=== PATIENT | female | born 1955 | race Caucasian/White ===

== ENCOUNTER → 2020-07-17 12:28 | Outpatient (CLI) | payer BC, SELFPAY ==
--- NOTE | ~2020-07-17 | MM_ITS ---
EXAMINATION: MM screening sophy BI w marino HISTORY: Screening mammogram TECHNIQUE: Craniocaudal and mediolateral oblique 3-D tomosynthesis images were obtained and synthetic 2-D images were generated. CAD analysis was submitted and interpreted. COMPARISON: 05/11/2019, 04/19/2018, 04/16/2017 bilateral digital screening mammogram examinations. BREAST PARENCHYMAL COMPOSITION: The breasts are heterogeneously dense, which may obscure small masses . FINDINGS: There are scattered benign calcifications, more numerous on the left. There is no evidence of suspicious mass, calcification, or architectural distortion to suggest malignancy in either breast . There has been no suspicious interval change. IMPRESSION: 1. No mammographic evidence of malignancy. 2. Recommend routine screening mammography in one year. BI-RADS Category 2: Benign finding(s). Reviewed, dictated and finalized at location A.
== END ==
PROVIDERS: PCP Family Medicine; Visit Provider Obstetrics & Gynecology Gynecology
DX: Z12.31 Encounter for screening mammogram for malignant neoplasm of breast (principal)
CPT/HCPCS: 77063; 77067

== ENCOUNTER → 2020-07-20 11:14 | Outpatient (CLI) | payer BC, SELFPAY ==
--- NOTE | ~2020-07-20 | DEXA_ITS ---
Bone Density Report Name: Sarah Salguero Age: 65 Sex: Female Ethnicity: White Date of : 1955 Indication: osteopenia; monitoring treatment; postmenopausal Referring Provider: ALEXEY SADLER Study: Bone densitometry was performed. Exam Date: July 20, 2020 Accession number: [id number] Bone Density: Region BMD T-score Z-score Classification AP Spine (L1-L4) 0.875 -1.6 0.2 Osteopenia Femoral Neck (Left) 0.682 -1.5 0.0 Osteopenia Total Hip (Left) 0.848 -0.8 0.4 Normal Femoral Neck (Right) 0.719 -1.2 0.3 Osteopenia Total Hip (Right) 0.809 -1.1 0.1 Osteopenia Total Hip Mean 0.829 -1.0 0.3 Normal World Health Organization criteria for BMD impression classify patients as: Normal (T-score at or above -1.0), Osteopenia (T-score between -1.0 and -2.5), or Osteoporosis (T-score at or below -2.5). 10-year Fracture Risk: FRAX not reported because: Treated for osteoporosis Previous Exams: Region Exam Age BMD T-score BMD Change BMD Change Date g/cm2 vs Baseline vs Previous AP Spine(L1-L4) 07/20/2020 65 0.875 -1.6 0.035* 0.051* 04/19/2018 63 0.824 -2.0 -0.016 -0.017 03/11/2016 61 0.841 -1.9 0.001 0.040* 03/29/2013 58 0.800 -2.2 -0.039* -0.039* 10/03/2009 54 0.839 -1.9 Total Hip(Left) 07/20/2020 65 0.848 -0.8 0.021 0.028* 04/19/2018 63 0.819 -1.0 -0.007 -0.007 03/11/2016 61 0.827 -0.9 0.000 0.025 03/29/2013 58 0.802 -1.1 -0.025 -0.025 10/03/2009 54 0.827 -0.9 Total Hip(Right) 07/20/2020 65 0.809 -1.1 0.002 0.024 04/19/2018 63 0.785 -1.3 -0.022 -0.043* 03/11/2016 61 0.828 -0.9 0.020 0.021 03/29/2013 58 0.807 -1.1 0.000 0.000 10/03/2009 54 0.808 -1.1 *Denotes significance at 95% confidence level, LSC for AP Spine = 0.022 g/cm2, LSC for Total Hip = 0.027 g/cm2 Clinical Information Provided by Patient: Is being treated for osteoporosis Has used the following medications: Fosamax (i.e. alendronate), Vitamin D Patient maximum height was 61.1 Menopause Age: 53 Drinks caffeinated beverages Onset of menses at age 14 Number of children 3 Impression: The patient has low bone mass, based on the Total Spine T-score. No significant bone loss was observed. Disc
== END ==
PROVIDERS: Visit Provider Obstetrics & Gynecology Gynecology
DX: M85.88 Other specified disorders of bone density and structure, other site (principal); Z78.0 Asymptomatic menopausal state; M85.852 Other specified disorders of bone density and structure, left thigh; M85.851 Other specified disorders of bone density and structure, right thigh
CPT/HCPCS: 77080

== ENCOUNTER 2021-06-06 01:46 | Day surgery (SDC) | payer BC, SELFPAY ==
[2021-05-29 09:02] VITALS: BMI 23.3
--- NOTE | 2021-06-05 13:06 | WPDANESEPPF ---
Anes - Initial Pre Proc Eval Procedure: Operation Date: 06/06/21 08:00 Proposed Procedures p Screening Colonoscopy - Cl Thurman MD Date/Time: 06/05/21 13:06 Surgeon: Cl Thurman MD Pre Op Diagnosis: family hx of colon ca Patient Data Age: 66 Gender: F Height: 1.55 m Weight: 56 kg Allergies Allergy/AdvReac Type Severity Reaction Status Date / Time No Known Allergies Allergy Verified 06/06/21 06:52 Home Medications Medication Instructions Recorded Confirmed Type alprazolam 0.25 mg tablet 0.25 mg PO DAILY PRN 05/09/20 06/06/21 History ergocalciferol (vitamin D2) 1,250 1,250 mcg PO WEEKLY 05/09/20 05/29/21 History mcg (50,000 unit) capsule sertraline 50 mg tablet 50 mg PO DAILY #90 tablet 01/25/21 05/29/21 Rx atorvastatin 10 mg tablet 10 mg PO DAILY #90 tablet 04/11/21 05/29/21 Rx Patient hx anesthesia problems: none Family hx anesthesia problems: none [facility] Past Medical History Medical History (Updated 06/06/21 @ 07:44 by Cl Thurman MD) Generalized anxiety disorder Hyperlipidemia Social History Social History Smoking status: Never smoker Living arrangements: with family Spiritual care concerns: No Anes - Eval Final PreProcedure Day of Procedure 06/05/21 13:06 Patient weight: normal Heart: regular rate and rhythm Lungs: clear to auscultation and normal air movement Airway: Mallampati scale class II Neurological: alert and oriented Last oral intake: >/= 8 hours ASA classification: II Emergent: no Anesthetic plan: proceed Anesthesia type and monitoring: general GIVS and standard monitoring Informed Consent: The patient's anesthetic plan and its attendant risks and benefits were discussed with the patient/family/POA. Questions were solicited and answers provided to the satisfaction of the patient/family/POA.
[2021-06-06 06:53] VITALS: BP 125/69; PULSE 90; RESP 18; TEMP 36.4; O2SAT 97
[2021-06-06] MEDS: LACTATED RINGERS 1,000 ML 150 ML IV CONT (07:05)
--- NOTE | 2021-06-06 07:42 | WPDGICN ---
Assessment and Plan Assessment and plan (1) Family hx of colon cancer: Code(s): Z80.0 - Family history of malignant neoplasm of digestive organs Status: Acute Assessment and Plan: Patient's brother has had colon cancer. Other family members have other different cancers. Suggest follow-up colonoscopy at least at 5 year intervals. GI Consult Note Consult date/time: 06/06/21 07:42 HPI: Sarah Salguero is a 66 year old female Presents for surveillance colonoscopy. Patient's family history is significant that her brother had colon cancer. His to children have had colon polyps. Patient reports that her weight appetite bowel movements are normal. She denies abdominal pain. She has had no bleeding. Other family members have had prostate and ovarian cancer. Patient presents today for screening colonoscopy. her last exam was in 2012. Review of Systems Review of Systems: All systems reviewed & are unremarkable except as noted in HPI and below PMFSH Past Medical History Medical History (Updated 06/06/21 @ 07:44 by Cl Thurman MD) Generalized anxiety disorder Hyperlipidemia Social History Social History Smoking status: Never smoker Living arrangements: with family Spiritual care concerns: No Meds Home Medications and Allergies Home Medications Medication Instructions Recorded Confirmed Type alprazolam 0.25 mg tablet 0.25 mg PO DAILY PRN 05/09/20 06/06/21 History ergocalciferol (vitamin D2) 1,250 1,250 mcg PO WEEKLY 05/09/20 05/29/21 History mcg (50,000 unit) capsule sertraline 50 mg tablet 50 mg PO DAILY #90 tablet 01/25/21 05/29/21 Rx atorvastatin 10 mg tablet 10 mg PO DAILY #90 tablet 04/11/21 05/29/21 Rx Allergies Allergy/AdvReac Type Severity Reaction Status Date / Time No Known Allergies Allergy Verified 06/06/21 06:52 Vital Signs Vital Signs - 24 hr 06/06/21 06:53 Temperature 97.6 F Pulse Rate 90 Respiratory Rate 18 Blood Pressure 125/69 Pulse Oximetry 97 Exam Narrative: Physical exam reveals patient to be alert. Vital signs are stable. HEENT exam is unremarkable. Patient is anicteric. Lungs are clear to auscultation and percussion. Heart is without murmur or extra sounds. Abdominal exam bowel sounds are present soft nontender with no organomegaly. Digital external rectal exam is normal.
[2021-06-06 08:45] VITALS: BP 81/46; PULSE 64; RESP 23; O2SAT 99
[2021-06-06 08:55] VITALS: BP 103/56; PULSE 60; RESP 14; O2SAT 98
[2021-06-06 09:05] VITALS: BP 118/75; PULSE 62; RESP 15; O2SAT 100
== END 2021-06-06 09:20 | disposition home or self-care (01) ==
PROVIDERS: PCP Family Medicine; Visit Provider Internal Medicine Gastroenterology
PROC: 0DJD8ZZ Inspection of Lower Intestinal Tract, Via Natural or Artificial Opening Endoscopic (ICD-10-PCS; CPT 45378; principal; 2021-06-06 08:00)
DX: Z12.11 Encounter for screening for malignant neoplasm of colon (principal); Z80.0 Family history of malignant neoplasm of digestive organs; K64.8 Other hemorrhoids; E78.5 Hyperlipidemia, unspecified; F41.1 Generalized anxiety disorder
CPT/HCPCS: 45378; J2704; J7120

== ENCOUNTER → 2021-08-20 11:18 | Outpatient (CLI) | payer BC, SELFPAY ==
--- NOTE | ~2021-08-20 | MM_ITS ---
EXAMINATION: MM screening sophy BI w marino HISTORY: Screening mammogram TECHNIQUE: Craniocaudal and mediolateral oblique 3-D tomosynthesis images were obtained and synthetic 2-D images were generated. CAD analysis was submitted and interpreted. COMPARISON: 07/17/2020, 05/11/2019, 04/19/2018 BREAST PARENCHYMAL COMPOSITION: The breasts are heterogeneously dense, which may obscure small masses . FINDINGS: Scattered benign-appearing calcifications are present. There is no evidence of suspicious m ass, calcification, or architectural distortion to suggest malignancy in either breast. There has bee n no suspicious interval change. IMPRESSION: 1. No mammographic evidence of malignancy. 2. Recommend routine screening mammography in one year. BI-RADS Category 2: Benign finding(s). Reviewed, dictated and finalized at location A. 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
== END ==
PROVIDERS: PCP Family Medicine; Visit Provider Obstetrics & Gynecology Gynecology
DX: Z12.31 Encounter for screening mammogram for malignant neoplasm of breast (principal)
CPT/HCPCS: 77063; 77067

== ENCOUNTER → 2022-12-31 12:00 | Outpatient (CLI) | payer MEDICARE, SELFPAY ==
--- NOTE | ~2022-12-31 | MM_ITS ---
EXAMINATION: MM screening sophy BI w marino HISTORY: Screening mammogram TECHNIQUE: Craniocaudal and mediolateral oblique 3-D tomosynthesis images were obtained and synthetic 2-D images were generated. CAD analysis was submitted and interpreted. COMPARISON: 08/20/2021, 07/17/2020, 05/11/2019 bilateral screening mammogram examinations BREAST PARENCHYMAL COMPOSITION: The breasts are heterogeneously dense, which may obscure small masses . FINDINGS: Scattered benign calcifications. There is no evidence of suspicious mass, calcification, or architectural distortion to suggest malignancy in either breast. There has been no suspicious interv al change. IMPRESSION: 1. No mammographic evidence of malignancy. 2. Recommend routine screening mammography in one year. BI-RADS Category 2: Benign finding(s). Reviewed, dictated and finalized at location A.
--- NOTE | ~2022-12-31 | DEXA_ITS ---
Bone Density Report Name: PRATIK MOSCOSO Age: 67 Sex: Female Ethnicity: White Date of : 1955 Indication: osteopenia; postmenopausal; monitoring treatment; Referring Provider: ALEXEY SADLER Study: Bone densitometry was performed. Exam Date: December 31, 2022 Accession number: [id number] Bone Density: Region BMD T-score Z-score Classification AP Spine (L1-L4) 0.894 -1.4 0.5 Osteopenia Femoral Neck (Left) 0.673 -1.6 0.0 Osteopenia Total Hip (Left) 0.825 -1.0 0.4 Normal Femoral Neck (Right) 0.673 -1.6 0.0 Osteopenia Total Hip (Right) 0.827 -0.9 0.4 Normal Total Hip Mean 0.826 -1.0 0.4 Normal World Health Organization criteria for BMD impression classify patients as: Normal (T-score at or above -1.0), Osteopenia (T-score between -1.0 and -2.5), or Osteoporosis (T-score at or below -2.5). 10-year Fracture Risk: FRAX not reported because: Treated for osteoporosis Previous Exams: Region Exam Age BMD T-score BMD Change BMD Change Date g/cm2 vs Baseline vs Previous AP Spine(L1-L4) 12/31/2022 67 0.894 -1.4 0.055* 0.020 07/20/2020 65 0.875 -1.6 0.035* 0.051* 04/19/2018 63 0.824 -2.0 -0.016 -0.017 03/11/2016 61 0.841 -1.9 0.001 0.040* 03/29/2013 58 0.800 -2.2 -0.039* -0.039* 10/03/2009 54 0.839 -1.9 Total Hip(Left) 12/31/2022 67 0.825 -1.0 -0.002 -0.023 07/20/2020 65 0.848 -0.8 0.021 0.028* 04/19/2018 63 0.819 -1.0 -0.007 -0.007 03/11/2016 61 0.827 -0.9 0.000 0.025 03/29/2013 58 0.802 -1.1 -0.025 -0.025 10/03/2009 54 0.827 -0.9 Total Hip(Right) 12/31/2022 67 0.827 -0.9 0.019 0.018 07/20/2020 65 0.809 -1.1 0.002 0.024 04/19/2018 63 0.785 -1.3 -0.022 -0.043* 03/11/2016 61 0.828 -0.9 0.020 0.021 03/29/2013 58 0.807 -1.1 0.000 0.000 10/03/2009 54 0.808 -1.1 *Denotes significance at 95% confidence level, LSC for AP Spine = 0.022 g/cm2, LSC for Total Hip = 0.027 g/cm2 Clinical Information Provided by Patient: Is being treated for osteoporosis Has used the following medications: Vitamin D Patient maximum height was 61.1 Menopause Age: 53 Drinks caffeinated beverages Onset of menses at age 14 Number of children 3
== END ==
PROVIDERS: PCP Family Medicine; Visit Provider Obstetrics & Gynecology Gynecology
DX: Z12.31 Encounter for screening mammogram for malignant neoplasm of breast (principal); Z78.0 Asymptomatic menopausal state; M85.88 Other specified disorders of bone density and structure, other site; M85.852 Other specified disorders of bone density and structure, left thigh; M85.851 Other specified disorders of bone density and structure, right thigh
CPT/HCPCS: 77063; 77067; 77080

== ENCOUNTER 2024-01-20 14:38 | Outpatient (CLI) | payer MEDICARE, SELFPAY ==
--- NOTE | ~2024-01-20 | MM_ITS ---
EXAMINATION: MM screening sophy BI w marino HISTORY: Screening mammogram TECHNIQUE: Craniocaudal and mediolateral oblique 3-D tomosynthesis images were obtained and synthetic 2-D images were generated. CAD analysis was submitted and interpreted. COMPARISON: December 31, 2022, August 20, 2021 bilateral screening mammogram examinations BREAST PARENCHYMAL COMPOSITION: There are scattered areas of fibroglandular density. FINDINGS: Occasional benign calcifications. There is no evidence of suspicious mass, calcification, o r architectural distortion to suggest malignancy in either breast. There has been no suspicious inter bebeto change. IMPRESSION: 1. No mammographic evidence of malignancy. 2. Recommend routine screening mammography in one year. BI-RADS Category 2: Benign Reviewed, dictated and finalized at location A.
== END 2024-01-20 14:39 ==
LOC: MICIMG 14:39
PROVIDERS: PCP Family Medicine; Visit Provider Obstetrics & Gynecology Gynecology
DX: Z12.31 Encounter for screening mammogram for malignant neoplasm of breast (principal)
CPT/HCPCS: 77063; 77067

== ENCOUNTER 2025-04-26 09:36 | Outpatient (CLI) | payer MEDICARE, SELFPAY ==
--- NOTE | ~2025-04-26 | DEXA_ITS ---
Bone Density Report Name: PRATIK MOSCOSO Age: 70 Sex: Female Ethnicity: White Date of : 1955 Indication: osteopenia; monitoring treatment; Referring Provider: MATTHIEU DEL RIO Study: Bone densitometry was performed. Exam Date: April 26, 2025 Accession number: [id number] Bone Density: Region BMD T-score Z-score Classification AP Spine(L1-L4) 0.918 -1.2 0.9 Osteopenia Femoral Neck (Left) 0.701 -1.3 0.4 Osteopenia Total Hip (Left) 0.888 -0.4 1.0 Normal Femoral Neck (Right) 0.681 -1.5 0.2 Osteopenia Total Hip (Right) 0.833 -0.9 0.6 Normal Total Hip Mean 0.860 -0.7 0.8 Normal World Health Organization criteria for BMD impression classify patients as: Normal (T-score at or above -1.0), Osteopenia (T-score between -1.0 and -2.5), or Osteoporosis (T-score at or below -2.5). 10-year Fracture Risk: FRAX not reported because: Treated for osteoporosis Previous Exams: Region Exam Age BMD T-score BMD Change BMD Change Date g/cm2 vs Baseline vs Previous AP Spine (L1-L4) 04/26/2025 70 0.918 -1.2 0.024 (2.7%)# 0.024 (2.7%)# 12/31/2022 67 0.894 -1.4 Total Hip(Left) 04/26/2025 70 0.888 -0.4 0.063 (7.6%)# 0.063 (7.6%)# 12/31/2022 67 0.825 -1.0 Total Hip(Right) 04/26/2025 70 0.833 -0.9 0.006 (0.7%)# 0.006 (0.7%)# 12/31/2022 67 0.827 -0.9 *Denotes significance at 95% confidence level, LSC for AP Spine = 0.022 g/cm2, LSC for Total Hip = 0.027 g/cm2 # Denotes dissimilar scan types or analysis methods Clinical Information Provided by Patient: Is being treated for osteoporosis Has used the following medications: Vitamin D Patient maximum height was 61.0 Menopause Age: 53 Drinks caffeinated beverages Onset of menses at age 14 Number of children 3 Impression: The patient has low bone mass, based on the Right Femoral Neck T-score. No significant bone loss was observed. Discussion: PATIENT UNDER TREATMENT WITH NO SIGNIFICANT BMD LOSS SINCE LAST EXAM. In an untreated patient, BMD typically declines with age. A lack of decline or gain is usually a sign that treatment is efficacious and fracture risk is reduced. It is important to ask patients whether they are taking their medications and to encourage continued and appropriate compliance with their osteoporosis therapies to reduce fracture risk. It is also important to review their risk factors and encourage appropriate calcium and vitamin D intakes, exercise, fall prevention and other lifestyle measures. Follow-Up: Consider a repeat BMD and Vertebral Fracture Assessment (VFA) exam in 2 years or sooner if medically necessary, to reassess this patient's status. Reported by: ERICKA on 04/26/2025 10:19:00 AM. Reviewed, dictated and finalized at location A.
--- NOTE | ~2025-04-26 | MM_ITS ---
EXAMINATION: MM screening sophy BI w marino HISTORY: Screening TECHNIQUE: Craniocaudal and mediolateral oblique 3-D tomosynthesis images were obtained and synthetic 2-D images were generated. CAD analysis was submitted and interpreted. COMPARISON: Comparison to multiple prior studies sequentially, with oldest reviewed study dated 04/19. BREAST PARENCHYMAL COMPOSITION: Dense: The breasts are heterogeneously dense, which may obscure small masses FINDINGS: There is no evidence of suspicious mass, calcification, or architectural distortion to sugg est malignancy in either breast. There has been no suspicious interval change. IMPRESSION: 1. No mammographic evidence of malignancy. 2. Recommend routine screening mammography in one year. BI-RADS Category 1: Negative Reviewed, dictated and finalized at location B.
--- OUTSIDE RECORDS SUMMARY | 2025-04-26 09:59 | XMS_ITS | Clinical Summary ---
Author Organization [facility] Address [address] [place] [address] Care Team Providers Care Probation Agent Name Role Phone Unavailable Primary Care Provider Unavailabl e Source Comments [facility],non-owned Affiliates and Associated Physician Practices is amultiple site organization consisting of ambulatory clinics and hospital sitesin [place], [place], [place] and [place]. This disclosure is being madepursuant to the Care Everywhere program and may not contain all information available regarding this patient. Last updated 18.[facility] Encounters Date Type Department Care Team Description 04/25/2025 Lab Requisition [facility] - DermPath Lab [address] [place] [address] Valencia Dickson MD from Last 3 Months Social History Tobacco Use Types Packs/Day Years Used Date Smoking Tobacco: Never Assessed Comments Unknown Sex and Gender Information Value Date Recorded Sex Assigned at Not on file Legal Sex Female 8:55 AM CDT Gender Identity Not on file Sexual Orientation Not on file Plan of Treatment Health Maintenance Due Date Last Done Comments BONE DENSITY TESTING 1955 COLOGUARD (AGES 45-75) - COL ON CA SCREENING 1955 COLON MONITORING 1955 COLONOSCOPY - COLON CA SCREENING 1955 CT COLONOGRAPHY - COLON CA SCREENING 1955 Colorectal Cancer Screening 1955 FIT - COLON CA SCREENING 1955 FLEX SIG - COLON CA SCREENING 1955 LIPID TESTING 1955 MAMMOGRAM 1955 MEDICARE AWV 12 MONTHS 1955 HEPATITIS C SCREENING 01/14/1974 DTAP/TDAP/TD VACCINES (1 - Tdap) 01/18/1975 PNEUMOCOCCAL VACCINE 50+ (1 of 1 - PCV) 01/18/2006 ZOSTER VACCINE (1 of 2) 01/18/2006 COVID-19 VACCINE (2023-2 5 season) 2024 DEPRESSION SCREENING 09/28/2024 INFLUENZA VACCINE (#1) 2025 Respiratory Syncytial Virus (RSV) Vaccine Pt: or over 60 yrs (1 - 1-dose 75+ series) 01/18/2031 HEPATITIS B VACCINE Aged Out No longe r eligible based on patient's age to complete this topic HIB VACCINE Aged Out No longer eligi ble based on patient's age to complete this topic HPV VACCINE Aged Out No longer eligi ble based on patient's age to complete this topic MENINGOCOCCAL (Group B) VACC INE SHARED DECISION-MAKING Aged Out No longer eligibl e based on patient's age to complete this topic MENINGOCOCCAL GROUPS A/C/Y/W VACCINE Aged Out No longer eligible b ased on patient's age to complete this topic Insurance [facility] MEDICARE AARP
--- OUTSIDE RECORDS SUMMARY | 2025-04-26 09:59 | XMS_ITS | Encounter Summary ---
Author Organization [facility] Address [address] [place] [address] Care Team Providers Care Transmission Calibration Engineer Name Role Phone Unavailable Primary Care Provider Unavailabl e Encounter Details Date Type Department Care Team (Late st Contact Info) Description 04/04/2024 Lab Requisition [facility] - DermPath Lab [address] [facility], [facility] [place] [address] Valencia Dickson MD [address] [facility] [address] [place] [address] Social History Tobacco Use Types Packs/Day Years Used Date Smoking Tobacco: Never Assessed Comments Unknown Sex and Gender Information Value Date Recorded Sex Assigned at Not on file Legal Sex Female 8:55 AM CDT Gender Identity Not on file Sexual Orientation Not on file documented as of this encounter Plan of Treatment Not on file documented as of this encounter Procedures Procedure Name Priority Date/Time Associated Diagnosis Comments DERMATOPATHOLOGY Routine 04/04/2024 8:59 AM CDT documented in this encounter Results * DERMATOPATHOLOGY (04/04/2024 8:59 AM CDT) Case Report Dermatopathology Report Case: [id number] Authorizing Provider: Valencia Dickson MD Collected: 04/04/2024 08:59 AM Ordering Location: [facility] - Received: 04/04/2024 04:34 PM DermPath Lab Pathologist: Liss Jeffries MD Specimen: Skin, mid chest 5:54 PM CDT DERMATOPATHOLOGY LABORATORY Final Diagnosis Specimen A. SKIN, mid chest: ACTINIC KERATOSIS, LICHENOID (L57.0) 5:54 PM CDT DERMATOPATHOLOGY LABORATORY at 1754 CDT Clinical History R/O BCC; [place] papule 5:54 PM CDT DERMATOPATHOLOGY LABORATORY Gross Description Specimen A: Received is one formalin filled container labeled with the patient's name and designated mid chest. The specimen consists of a shave biopsy measuring 6x5x1 mm. Jar 0. 5:54 PM CDT DERMATOPATHOLOGY LABORATORY Microscopic Description Specimen A. SKIN, mid chest: There is focal parakeratosis. The lower half of the epidermis shows disorderly maturation of keratinocytes with nuclear pleomorphism. The dermis shows a band-like, chronic inflammatory infiltrate with occasional apoptotic keratinocytes and some basal vacuolar alteration. 5:54 PM CDT DERMATOPATHOLOGY LABORATORY Disclaimer An external and internal positive and negative controls are appropriate for the histochemical, immunohistochemical and immunofluorescence stain(s) in this case (if any), except where stated explicitly. The performance characteristics of the stain(s) cited in this report were developed and its performance characteristic determined by the Dermatopathology Laboratory at [facility], directed by Dr. Brady Chase. These tests need not be, and therefore are not, approved by the [place] Food and Drug Administration. The tests are used for clinical purposes. Billing Codes Specimen Charges Stain Charges 05889 1 5:54 PM CDT DERMATOPATHOLOGY LABORATORY Embedded Images 5:54 PM CDT DERMATOPATHOLOGY LABORATORY Pathology/Cytolo gy TISSUE SPECIMEN FROM SKIN / Unknown 04/04/2024 8:59 AM CDT 04/04/2024 4:34 PM CDT us Valencia Dickson MD LAB - PATHOLOGY/CYTOLOGY ORD ERABLES Final Result DERMATOPATHOLOGY LABORATORY [facility] - Department of Dermatology [address], [address] [phone] documented in this encounter Visit Diagnoses Not on filedocumented in this encounter
--- OUTSIDE RECORDS SUMMARY | 2025-04-26 09:59 | XMS_ITS | Encounter Summary ---
Author Organization [facility] Address [address] [address] [place] [address] Care Team Providers Care Field Tech Name Role Phone Unavailable Primary Care Provider Unavailabl e Encounter Details Date Type Department Care Team (Late st Contact Info) Description 04/25/2025 Lab Requisition [facility] - Derm[facility] Lab [address] [facility], [facility] [place] [address] Valencia Dickson MD [address] [facility] [address] [place] [address] Social History Tobacco Use Types Packs/Day Years Used Date Smoking Tobacco: Never Assessed Comments Unknown Sex and Gender Information Value Date Recorded Sex Assigned at Not on file Legal Sex Female 8:55 AM CDT Gender Identity Not on file Sexual Orientation Not on file documented as of this encounter Plan of Treatment Pending Results Name Type Priority Associated Diagnoses Date /Time DERMATOPATHOLOGY Pathology Cytology Routine 04/25/2025 8:51 AM CDT documented as of this encounter Visit Diagnoses Not on filedocumented in this encounter
== END 2025-04-26 09:37 | disposition home or self-care (01) ==
LOC: ANHIMG 09:39
PROVIDERS: PCP Family Medicine; Visit Provider Family Medicine
DX: Z12.31 Encounter for screening mammogram for malignant neoplasm of breast (principal); M85.89 Other specified disorders of bone density and structure, multiple sites; Z78.0 Asymptomatic menopausal state
CPT/HCPCS: 77063; 77067; 77080